=== PATIENT | female | born 1970 | race African-American/Black ===

== ENCOUNTER 2024-06-12 04:40 | Day surgery (SDC) | payer OTHER ==
[2024-06-11 10:47] VITALS: BMI 39.8
[2024-06-12 08:24] VITALS: TEMP 97.8
[2024-06-12 10:19] VITALS: RESP 14
[2024-06-12 11:01] VITALS: PULSE 63
[2024-06-12 11:03] VITALS: BP 100/40
== END 2024-06-12 10:55 | disposition home or self-care (01) ==
LOC: JASU-ENDO 04:40
PROVIDERS: ATTEND Internal Medicine Gastroenterology
PROC: 0DBN8ZX Excision of Sigmoid Colon, Via Natural or Artificial Opening Endoscopic, Diagnostic (ICD-10-PCS; principal; 2024-06-12 09:00)
DX: Z12.11 Encounter for screening for malignant neoplasm of colon (principal); D12.5 Benign neoplasm of sigmoid colon; K64.8 Other hemorrhoids
CPT/HCPCS: 81025; 88305-TC